=== PATIENT | female | born 1965 | race Caucasian/White ===

== ENCOUNTER 2022-09-08 07:17 | Day surgery (SDC) | payer OTHER ==
[~2022-09-08] VITALS: Ht 162.6 cm; Wt 113.4 kg
[2022-09-08] MEDS ORDERED: fentaNYL citrate 0.05 MG/ML VIAL ONE (08:11)
[2022-09-08] MEDS ORDERED: MIDAZOLAM 5 MG/5 ML VIAL ONE ×2 (08:11→08:12)
[2022-09-08] MEDS ORDERED: fentaNYL citrate 0.05 MG/ML VIAL IVP ONE (09:20)
[2022-09-08] MEDS ORDERED: MIDAZOLAM 2 MG/2 ML VIAL IVP ONE (09:20)
== END 2022-09-11 08:14 | disposition home or self-care (01) ==
LOC: MOR 07:17 → MMU 07:18 → MOR 09-11 08:14
PROVIDERS: ATTEND Internal Medicine Gastroenterology
DX: K21.9 Gastro-esophageal reflux disease without esophagitis (principal); K42.9 Umbilical hernia without obstruction or gangrene; I10 Essential (primary) hypertension; E11.9 Type 2 diabetes mellitus without complications; F41.9 Anxiety disorder, unspecified; F32.A Depression, unspecified; M19.90 Unspecified osteoarthritis, unspecified site; Z88.5 Allergy status to narcotic agent; Z79.899 Other long term (current) drug therapy
CPT/HCPCS: 43235; J2250; J3010